=== PATIENT | male | born 1965 | race Two or more races ===

== ENCOUNTER 2018-06-19 02:19 | Emergency (ER) | payer SELFPAY ==
[~2018-06-19] VITALS: Ht 165.1 cm; Wt 136.1 kg
[2018-06-19 02:28] VITALS: BP 190/125
[2018-06-19] MEDS ORDERED: IBUPROFEN 600 MG TABLET. PO ONE (03:00)
--- NOTE | 2018-06-19 03:05 | PHYS DOC ---
Past Medical History Past Medical History pneumonia Past Surgical History: Appendectomy Additional Past Surgical Histo: ganglion cystectomy Adult General Chief Complaint Chief Complaint: ANKLE PAIN HPI HPI This is a 53-year-old male with no past medical history presenting to the ED with right ankle pain and swelling. His symptoms began after a misstep while walking down stairs this afternoon around 1430. He has been unable to bear weight since the injury occurred and has not taken anything for pain. Review of Systems Review of Systems Constitutional: Denies fever or chills [] Eyes: Denies change in visual acuity, redness, or eye pain [] HENT: Denies nasal congestion or sore throat [] Respiratory: Denies cough or shortness of breath [] Cardiovascular: No additional information not addressed in HPI [] GI: Denies abdominal pain, nausea, vomiting, bloody stools or diarrhea [] : Denies dysuria or hematuria [] Musculoskeletal: Denies back pain or joint pain [] Integument: Denies rash or skin lesions [] Neurologic: Denies headache, focal weakness or sensory changes [] Endocrine: Denies polyuria or polydipsia [] All other systems were reviewed and found to be within normal limits, except as documented in this note. Current Medications Current Medications Current Medications Medications (Trade) Dose Ordered Sig/[place] Start Time Stop Time Status Last Admin Dose Admin Ibuprofen (Motrin) 600 mg 1X ONCE 06/19/18 03:00 06/19/18 03:01 DC Allergies Allergies Allergies Coded Allergies Type Severity Reaction Last Updated Verified No Known Drug Allergies 06/19/18 No Physical Exam Physical Exam Constitutional: Well developed, well nourished, no acute distress, non-toxic appearance. [] HENT: Normocephalic, atraumatic. [] Eyes: Conjunctiva normal, no discharge. [] Neck: Normal range of motion, no tenderness, supple, no stridor. [] Cardiovascular: Heart rate regular rhythm, no murmur [] Lungs & Thorax: Bilateral breath sounds clear to auscultation [] Abdomen: Bowel sounds normal, soft, no tenderness, no masses, no pulsatile masses. [] Skin: Warm, dry, no erythema, no rash. [] Back: No tenderness, no CVA tenderness. [] Extremities: Tenderness and edema noted to the right lateral malleolus, unable to bear weight without pain. [] Neurologic: Alert and oriented X 3, normal motor function, normal sensory function, no focal deficits noted. [] Psychologic: Affect normal, judgement normal, mood normal. [] Current Patient Data Vital Signs Vital Signs Date Time Temp Pulse Resp B/P (MAP) Pulse Ox O2 Delivery O2 Flow Rate FiO2 06/19/18 02:28 99.2 85 18 190/125 (146) 97 Room Air 99.2 EKG EKG [] Radiology/Procedures Radiology/Procedures 3 view x-ray right ankle (preliminary interpretation by ED physician) no acute fracture or dislocation Course & Med Decision Making Course & Med Decision Making Pertinent Labs and Imaging studies reviewed. (See chart for details) This is a 53-year-old male presenting with an acute right ankle injury. He has been unable to bear weight and presents with medial malleolar tenderness. No fractures seen on 3v x-ray R ankle. Patient stable for discharge with outpatient follow-up with PCP and Orthopedics. Discussed findings and plan with patient and family, who acknowledge understanding and agreement. Dragon Disclaimer Dragon Disclaimer This electronic medical record was generated, in whole or in part, using a voice recognition dictation system. Departure Departure Impression: Primary Impression: Right ankle sprain Disposition: HOME, SELF-CARE Condition: STABLE Referrals: NO PCP (PCP) ADELE SCHMID MD Patient Instructions: Ankle Sprain, [id number], Crutch Use, [id number] Additional Instructions: Use over the counter Ibuprofen or Tylenol for pain or discomfort. Problem Qualifiers Primary Impression: Right ankle sprain Encounter type: initial encounter Involved ligament of ankle: unspecified ligament Qualified Codes: S93.401A - Sprain of unspecified ligament of right ankle, initial encounter JO KAY DO Jun 19, 2018 03:05
--- NOTE | 2018-06-19 03:13 | RAD ---
Right ankle radiograph 06/19/2018 2:43 AM INDICATION: Pain and swelling along the lateral malleolus due to fall. COMPARISON: None available. TECHNIQUE: 3 views the right ankle are provided. FINDINGS: There is no acute fracture or dislocation. Ankle mortise is congruent. Talar dome and tibial plafond are intact. Bone mineralization is within normal limits. Joint spaces are maintained. Lateral soft tissue swelling. There is no soft tissue gas or osseous erosion. IMPRESSION: Soft tissue swelling along the lateral malleolus without acute fracture or dislocation. Electronically signed by: Sofia Acuña MD (06/19/2018 3:10 AM) [id number]
== END 2018-06-19 03:40 | disposition home or self-care (01) ==
LOC: ER 02:19
DX: S93.491A Sprain of other ligament of right ankle, initial encounter (principal); Z90.89 Acquired absence of other organs; Z90.6 Acquired absence of other parts of urinary tract; W50.2XXA Accidental twist by another person, initial encounter; Y93.01 Activity, walking, marching and hiking; Y92.89 Other specified places as the place of occurrence of the external cause; Y99.0 Civilian activity done for income or pay
CPT/HCPCS: 73610; 99283; L4350